=== PATIENT | male | born 1980 | race Caucasian/White ===

== ENCOUNTER 2017-05-07 15:25 | Emergency (ER) | payer OTHER ==
[2017-05-07] MEDS ORDERED: Ketorolac INJ* 60 MG/2 ML VIAL IM ONE (16:45)
[2017-05-07 18:38] VITALS: BP 140/82
--- NOTE | 2017-05-09 19:55 | UC ---
Kendrick Clement Nikita, scribed for Shira Hester DO on 05/07/17 at 1635 . Back Pain HPI - HPI Summary HPI Summary: This patient is a 37 year old M presenting to [facility] with a chief complaint of L lower back pain since last night. The CC is described as sharp, not throbbing, tight, radiating into the buttocks, and so painful that he has to be in a wheelchair. The patient rates the pain 10/10 in severity. Symptoms aggravated by standing, ambulating, and sitting straight. Symptoms alleviated by Advil and a heating pad. Patient reports darker urine. Patient denies fever, chills, dysuria, N/V, abdominal pain, sore throat, CP, SOB, cough, PENALOZA, rash, ear ache, numbness, weakness, and tingling. Pt saw the chiropractor this morning who said his back is locked up and the muscles are tight. He was sent to Dr. Lawrence afterwards who was unable to see him and he was told to go to Urgent Care or ED by his PCP. - History of Current Complaint Chief Complaint: UCBackPain Stated Complaint: BACK PAIN Time Seen by Provider: 05/07/17 16:20 Hx Obtained From: Patient Onset/Duration: Sudden Onset, Lasting Days - last night, Still Present Timing: Constant Severity Initially: Severe Severity Currently: Severe Pain Intensity: 10 Pain Scale Used: 0-10 Numeric Back Pain: Is Discrete @ - L lower back, Radiates To - buttock Character: Sharp - and tight Aggravating Factor(s): Movement, Walking, Other - sitting straight, standing Alleviating Factor(s): Heat, OTC Meds - Advil Associated Signs And Symptoms: Positive: Other - Patient reports darker urine. Patient denies fever, chills, dysuria, N/V, abdominal pain, sore throat, CP, SOB , cough, PENALOZA, rash, and ear ache. - Allergies/Home Medications Allergies/Adverse Reactions: Allergies Allergy/AdvReac Type Severity Reaction Status Date / Time Bacitracin Allergy Intermediate Itching Verified 05/07/17 15:55 Benzalkonium Chloride Allergy Intermediate Itching Verified 05/07/17 15:55 [From Bactine] Diphenhydramine Allergy Intermediate Hives Verified 05/07/17 15:55 [From Benadryl] PMH/Surg Hx/FS Hx/Imm Hx Other Endocrine History: No DM Other Cardiovascular History: No CAD, HTN Other Respiratory History: No asthma - Surgical History Surgical History: Yes Surgery Procedure, Year, and Place: tonsils & adenoids removed at age 32 w/ Dr. Craig. - Family History Known Family History: Negative: Cardiac Disease, Hypertension, Diabetes - Social History Alcohol Use: None Substance Use Type: None Smoking Status (MU): Never Smoked Tobacco Review of Systems Constitutional: Negative Skin: Negative ENT: Negative Respiratory: Negative Cardiovascular: Negative Gastrointestinal: Negative Genitourinary: Other - darker urine; denies dysuria Neurological: Negative All Other Systems Reviewed And Are Negative: Yes Physical Exam Triage Information Reviewed: Yes Completion Of Physical Exam Limited Due To: Other - pt's condition Appearance: Well-Appearing, Well-Nourished, Pain Distress - Moderate pain distress with movement Vital Signs: Initial Vital Signs Temp 98.4 F 05/07/17 15:56 Pulse 80 05/07/17 15:56 Resp 16 05/07/17 15:56 BP 133/90 05/07/17 15:56 Pulse Ox 98 05/07/17 15:56 Vital Signs Reviewed: Yes Eyes: Positive: Conjunctiva Clear. Negative: Discharge ENT: Positive: Hearing grossly normal. Negative: Muffled/hoarse voice Neck exam: Normal Neck: Positive: Supple Respiratory: Positive: Lungs clear, Normal breath sounds, No respiratory distress, No accessory muscle use Cardiovascular: Positive: RRR, No Murmur Musculoskeletal: Positive: Other: - strength in sensation and reflex intact bilaterally, Pt feels very rigid overall, significant decreased ROM in flexion and extension of hip due to pain, paraspinal tenderness noted in lumbosacral region on left, psoas spasm on right Neurological: Positive: Alert, Muscle Tone Normal Psychological Exam: Normal Psychological: Positive: Age Appropriate Behavior Skin Exam: Normal, Other - Warm, Dry, Normal color Back Pain Course/Dx - Course Course Of Treatment: This patient is a 37 year old MF presenting to [facility] with a chief complaint of L lower back pain since last night. The CC is described as sharp, not throbbing, tight, radiating into the buttocks, and so painful that he has to be in a wheelchair. The patient rates the pain 10/10 in severity. Symptoms aggravated by standing, ambulating, and sitting straight. Symptoms alleviated by Advil and a heating pad. Patient reports darker urine. Patient denies fever, chills, dysuria, N/V, abdominal pain, sore throat, CP, SOB, cough , PENALOZA, rash, ear ache, numbness, weakness, and tingling. In the course, pt was given a Toradol shot. Medications reviewed this visit. High blood pressure noted. Pt will be discharged and sent to [facility]. Pt is agreeable with this plan. - Differential Dx/Diagnosis Provider Diagnoses: back pain, Elevated blood pressure without diagnosis of hypertension. Discharge - Discharge Plan Condition: Stable Disposition: [facility] OF CARE FAC Referrals: Willis Alanis MD [Primary Care Provider] - Additional Instructions: Your blood pressure was elevated at this visit. That does not mean you have hypertension, it is probably due to your current condition. Please follow up with your primary care provider. The documentation as recorded by the Kendrick sosa Nikita accurately reflects the service I personally performed and the decisions made by me, Shira Hester DO.
== END 2017-05-07 18:02 | disposition short-term general hospital (02) ==
LOC: UCEAST 15:25
DX: M54.9 Dorsalgia, unspecified (principal); R03.0 Elevated blood-pressure reading, without diagnosis of hypertension
CPT/HCPCS: 81003; 99213; G0463; J1885